=== PATIENT | male | born 1950 | race Caucasian/White ===

== ENCOUNTER → 2016-08-02 | Outpatient (REF) | payer MEDICARE ==
[~2016-08-02] MED LIST: ASPI1TAB PO; DOCQ100C; POLY33502; SENN8.6T10
[2016-08-02 11:40] LABS: BASO % 0.5 % (0.0-1.0); EOS # 0.1 K/mm3 (0.0-0.50); EOS % 1.2 % (0.0-3.0); LARGE UNSTAINED CELL # 0.1 K/mm3 (0.0-0.4); LARGE UNSTAINED CELL % 1.6 % (0.0-4.0); LYMPH # 1.8 K/mm3 (1.5-4.5); LYMPH % 26.4 % (24.0-44.0); MEAN CORPUSCULAR HEMOGLOBIN 31.7 pg (27.0-33.0); MEAN CORPUSCULAR HGB CONC 33.8 g/dl (32.0-36.5); MEAN CORPUSCULAR VOLUME 93.9 fl (80.0-96.0); MONO # 0.5 K/mm3 (0.0-0.8); MONO % 7.9 % (0.0-5.0); NEUTROPHILS # 3.9 K/mm3 (1.8-7.7); NEUTROPHILS % 62.4 % (36.0-66.0); PLATELET COUNT, AUTOMATED 189 k/mm3 (150-450); RED CELL DISTRIBUTION WIDTH 13.3 % (11.5-14.5); WHITE BLOOD COUNT 6.3 K/mm3 (4.0-10.0)
[2016-08-02 11:57] LABS: ALBUMIN 3.8 GM/DL (3.2-5.2); ALBUMIN/GLOBULIN RATIO 1.52 (1.00-1.93); ALKALINE PHOSPHATASE 65 U/L (45-117); ALT/SGPT 29 U/L (12-78); ANION GAP 8 MEQ/L (8-16); AST/SGOT 25 U/L (15-37); BLOOD UREA NITROGEN 12 MG/DL (7-18); CALCIUM LEVEL 9.2 MG/DL (8.8-10.2); CARBON DIOXIDE LEVEL 29 MEQ/L (21-32); CHLORIDE LEVEL 102 MEQ/L (98-107); CHOLESTEROL LEVEL 160 MG/DL (<200); CREATININE FOR GFR 1.02 MG/DL (0.70-1.30); GLOMERULAR FILTRATION RATE > 60.0 (>49); GLUCOSE, FASTING 82 MG/DL (80-110); POTASSIUM SERUM 3.8 MEQ/L (3.5-5.1); SODIUM LEVEL 139 MEQ/L (136-145); TOTAL PROTEIN 6.3 GM/DL (6.4-8.2); TRIGLYCERIDES LEVEL 80 MG/DL (<150)
== END ==
LOC: M SFHCPLAZ 08:46
PROVIDERS: ATTEND Nurse Practitioner Family
DX: K59.00 Constipation, unspecified (principal); Z13.1 Encounter for screening for diabetes mellitus; Z13.220 Encounter for screening for lipoid disorders; Z79.899 Other long term (current) drug therapy

== ENCOUNTER 2016-08-04 11:13 | Emergency (ER) | payer MEDICARE ==
[~2016-08-04] VITALS: Ht 170.2 cm; Wt 85.3 kg
[2016-08-04] MEDS ORDERED: POLY33502 (11:24)
[2016-08-04] MEDS ORDERED: SENN8.6T10 (11:24)
[2016-08-04] MEDS ORDERED: DOCQ100C (11:24)
[2016-08-04] MEDS ORDERED: ASPIRIN 81 MG CHEW TABLET PO ONE (11:30)
[2016-08-04] MEDS ORDERED: GI COCKTAIL 50ML BTL(HYOSCYAMINE/MAALOX/LIDOCAINE VISCOUS)(1:3:1) PO ONE (11:30)
[2016-08-04 11:43] LABS: BASO % 0.5 % (0.0-1.0); EOS # 0.1 K/mm3 (0.0-0.50); EOS % 1.3 % (0.0-3.0); LARGE UNSTAINED CELL # 0.1 K/mm3 (0.0-0.4); LARGE UNSTAINED CELL % 1.9 % (0.0-4.0); LYMPH # 1.4 K/mm3 (1.5-4.5); LYMPH % 26.6 % (24.0-44.0); MEAN CORPUSCULAR VOLUME 93.5 fl (80.0-96.0); MONO # 0.4 K/mm3 (0.0-0.8); MONO % 7.6 % (0.0-5.0); NEUTROPHILS # 3.3 K/mm3 (1.8-7.7); NEUTROPHILS % 62.3 % (36.0-66.0); PLATELET COUNT, AUTOMATED 181 k/mm3 (150-450); RED CELL DISTRIBUTION WIDTH 12.8 % (11.5-14.5); WHITE BLOOD COUNT 5.3 K/mm3 (4.0-10.0)
[2016-08-04] MEDS ORDERED: SUCRALFATE SUSP 1GM/10ML UD PO ONE (11:45)
[2016-08-04 11:57] LABS: MEAN CORPUSCULAR HEMOGLOBIN 32.4 pg (27.0-33.0); MEAN CORPUSCULAR HGB CONC 35.3 g/dl (32.0-36.5)
--- NOTE | 2016-08-04 11:57 | REP ---
Portable chest, single AP view, patient sitting upright: There are no comparisons. The lung mora are clear. The cardiac size is normal. The gregg, mediastinum, and bony thorax are unremarkable. Impression: Negative portable chest. Signed by Jaron Shi MD 08/04/2016 11:48 A
[2016-08-04] MEDS ORDERED: SUCRALFATE 1 GM TAB PO ONE (12:00)
[2016-08-04 12:10] LABS: ALBUMIN 3.7 GM/DL (3.2-5.2); ALBUMIN/GLOBULIN RATIO 1.28 (1.00-1.93); ALKALINE PHOSPHATASE 71 U/L (45-117); ALT/SGPT 30 U/L (12-78); ANION GAP 7 MEQ/L (8-16); AST/SGOT 25 U/L (15-37); BILIRUBIN,DIRECT 0.2 MG/DL (0.0-0.2); BILIRUBIN,TOTAL 0.9 MG/DL (0.2-1.0); BLOOD UREA NITROGEN 12 MG/DL (7-18); CALCIUM LEVEL 8.6 MG/DL (8.8-10.2); CARBON DIOXIDE LEVEL 29 MEQ/L (21-32); CHLORIDE LEVEL 102 MEQ/L (98-107); CREATININE FOR GFR 0.99 MG/DL (0.70-1.30); GLOMERULAR FILTRATION RATE > 60.0 (>49); GLUCOSE, FASTING 93 MG/DL (80-110); POTASSIUM SERUM 3.4 MEQ/L (3.5-5.1); SODIUM LEVEL 138 MEQ/L (136-145); TOTAL PROTEIN 6.6 GM/DL (6.4-8.2)
--- NOTE | 2016-08-04 12:32 | REP ---
Right lower extremity deep vein duplex ultrasound: The deep veins demonstrate normal compression, normal Doppler color flow and normal Doppler waveforms with respiration and augmentation from the popliteal vein to the common femoral vein. Impression: There is no deep vein thrombus. Signed by Jaron Shi MD 08/04/2016 12:24 P
[2016-08-04] MEDS ORDERED: ASPI1TAB PO (19:04)
[2016-08-04 19:18] VITALS: BP 136/84
--- NOTE | 2016-08-05 07:20 | ECGEPIP ---
Stationary ECG Study [facility] - ED Test Date: 2016-08-04 Pat Name: CRYSTAL KUMARI Department: Room: - Gender: M Director Public: rn : 1950 Requested By: Verna Stanley Order Number: [id number] Reading MD: Verna Stanley Measurements Intervals [place] Rate: 62 P: 4 [place]: 186 QRS: -1 QRSD: 87 T: -8 QT: 388 QTc: 395 Interpretive Statements SINUS RHYTHM LOW QRS VOLTAGE IN PRECORDIAL LEADS NSTTW ABNORMALITY NO PRIOR FOR COMPARISON Electronically Signed On 08-05-2016 7:19:29 EDT by Verna Stanley
--- NOTE | 2016-08-05 07:24 | ECGEPIP ---
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
[2016-08-13] MEDS ORDERED: TYLE325T5 PO (15:06)
[2016-08-13] MEDS ORDERED: UNIS25TA2 PO (15:06)
== END 2016-08-04 19:19 | disposition home or self-care (01) ==
LOC: M ED 11:49
DX: R07.9 Chest pain, unspecified (principal); Z79.82 Long term (current) use of aspirin

== ENCOUNTER → 2016-08-06 | Outpatient (CLI) | payer MEDICARE ==
[~2016-08-06] MED LIST changes: +GASTROGRAFIN SOLUTION 30ML (Q9963) As Ordered ONE; +ISOVUE-370 76% 100ML VIAL (Q9967) As Ordered ONE
--- NOTE | 2016-08-06 20:24 | REP ---
CT ABDOMEN AND PELVIS WITH AND WITHOUT CONTRAST: TECHNIQUE: Axial noncontrast images through the abdomen followed by contrast-enhanced images through the abdomen and pelvis using 100 mL Isovue 370 intravenous contrast material, with coronal and sagittal reformations. Visualized lung bases demonstrate minor linear fibrotic change. The liver demonstrates a 9 mm hypodense nodule on the right superiorly. A hypodense nodule is seen in the caudate lobe. These appear to possibly demonstrate some peripheral enhancement and may represent hemangiomas. The spleen is unremarkable. Adrenals, pancreas and right kidney are unremarkable. Multiple cystic areas are seen throughout the left renal pelvis and I suspect these represent multiple peripelvic cysts. There is no hydroureter. Moderate atherosclerotic calcifications are seen of the abdominal aorta without aneurysm. There is no adenopathy. There is no free air or free fluid. There is no appendicitis or bowel wall thickening. There is no pelvic mass. The urinary bladder appears grossly unremarkable. IMPRESSION: Two nodules in the liver demonstrate possible peripheral nodular enhancement and may represent hemangiomas. Recommend dedicated dynamic CT or MRI of the liver to further evaluate. Multiple cystic structures throughout the left renal pelvis probably represent peripelvic cysts, although UPJ obstruction is not excluded. No adenopathy. No free fluid. No bowel wall abnormality. Signed by Jaron Matos MD 08/07/2016 05:22 P
== END ==
LOC: M RAD 16:22
PROVIDERS: ATTEND Nurse Practitioner Family
DX: K59.00 Constipation, unspecified (principal); K76.89 Other specified diseases of liver; N39.8 Other specified disorders of urinary system
CPT/HCPCS: 74178; Q9963; Q9967

== ENCOUNTER 2016-08-07 02:49 | Emergency (ER) | payer MEDICARE ==
[~2016-08-07] VITALS: Ht 170.2 cm; Wt 85.3 kg
[~2016-08-07 02:49] MED LIST changes: -GASTROGRAFIN SOLUTION 30ML (Q9963) As Ordered ONE; -ISOVUE-370 76% 100ML VIAL (Q9967) As Ordered ONE
[2016-08-07 05:26] VITALS: BP 130/75
[2016-08-13] MEDS ORDERED: UNIS25TA2 PO (15:06)
[2016-08-13] MEDS ORDERED: TYLE325T5 PO (15:06)
== END 2016-08-07 05:38 | disposition home or self-care (01) ==
LOC: M ED 03:50
DX: R19.7 Diarrhea, unspecified (principal); K59.00 Constipation, unspecified; Z79.82 Long term (current) use of aspirin

== ENCOUNTER 2016-08-07 08:33 | Emergency (ER) | payer MEDICARE ==
[~2016-08-07] VITALS: Ht 170.2 cm; Wt 86.2 kg
[2016-08-07 09:27] LABS: BASO % 0.3 % (0.0-1.0); EOS # 0.1 K/mm3 (0.0-0.50); LARGE UNSTAINED CELL # 0.1 K/mm3 (0.0-0.4); LARGE UNSTAINED CELL % 1.8 % (0.0-4.0); LYMPH # 1.2 K/mm3 (1.5-4.5); LYMPH % 19.1 % (24.0-44.0); MONO # 0.5 K/mm3 (0.0-0.8); MONO % 7.3 % (0.0-5.0); NEUTROPHILS # 4.4 K/mm3 (1.8-7.7); NEUTROPHILS % 70.5 % (36.0-66.0)
[2016-08-07] MEDS ORDERED: ASPIRIN 81 MG CHEW TABLET PO ONE (09:30)
--- NOTE | 2016-08-07 09:32 | ECGEPIP ---
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
--- NOTE | 2016-08-07 09:42 | REP ---
Chest one-view HISTORY: Chest pain Comparison: 08/04/2016 The lungs are clear. The heart is normal in size. The pulmonary vasculature is normal in appearance. Impression: No acute disease. Signed by Aristides Morrison MD 08/07/2016 09:32 A
[2016-08-07 09:44] LABS: ALBUMIN 3.7 GM/DL (3.2-5.2); ALBUMIN/GLOBULIN RATIO 1.19 (1.00-1.93); ALKALINE PHOSPHATASE 76 U/L (45-117); ALT/SGPT 31 U/L (12-78); ANION GAP 8 MEQ/L (8-16); AST/SGOT 29 U/L (15-37); BILIRUBIN,DIRECT 0.2 MG/DL (0.0-0.2); BILIRUBIN,TOTAL 0.8 MG/DL (0.2-1.0); BLOOD UREA NITROGEN 12 MG/DL (7-18); CALCIUM LEVEL 8.6 MG/DL (8.8-10.2); CARBON DIOXIDE LEVEL 27 MEQ/L (21-32); CHLORIDE LEVEL 104 MEQ/L (98-107); CREATININE FOR GFR 0.96 MG/DL (0.70-1.30); GLOMERULAR FILTRATION RATE > 60.0 (>49); GLUCOSE, FASTING 82 MG/DL (80-110); POTASSIUM SERUM 3.5 MEQ/L (3.5-5.1); SODIUM LEVEL 139 MEQ/L (136-145); TOTAL PROTEIN 6.8 GM/DL (6.4-8.2)
[2016-08-07 09:58] LABS: MEAN CORPUSCULAR HEMOGLOBIN 32.4 pg (27.0-33.0); MEAN CORPUSCULAR HGB CONC 35.3 g/dl (32.0-36.5); MEAN CORPUSCULAR VOLUME 91.8 fl (80.0-96.0); RED CELL DISTRIBUTION WIDTH 12.9 % (11.5-14.5); WHITE BLOOD COUNT 6.6 K/mm3 (4.0-10.0)
[2016-08-07 09:59] LABS: PLATELET COUNT, AUTOMATED 195 k/mm3 (150-450)
[2016-08-07] MEDS ORDERED: ISOVUE-370 76% 100ML VIAL (Q9967) As Ordered ONE (10:57)
[2016-08-07 12:23] VITALS: BP 145/83
--- NOTE | 2016-08-07 12:29 | REP ---
CT ANGIOGRAM OF THE CHEST: TECHNIQUE: Axial contrast enhanced images from the thoracic inlet to the upper abdomen using 100 mL Isovue 370 intravenous contrast material with multiplanar reformations. No infiltrate is seen in either lung. There is no CT evidence of pulmonary embolism. There is no evidence of thoracic aortic aneurysm or dissection. There is no pleural or pericardial effusion. There is no adenopathy in the chest. In the visualized portions of the upper abdomen, two indeterminate liver nodules are again seen, as were visualized on the prior CT of the abdomen 08/06/2016. Contrast seen within a dilated left renal collecting system which has an appearance most consistent with left UPJ stricture and obstruction. IMPRESSION: No CT evidence of pulmonary embolism. Two indeterminate nodules of the liver. Again dynamic CT or MRI of the liver is recommended with contrast is recommended. Signed by Jaron Matos MD 08/07/2016 05:25 P
--- NOTE | 2016-08-07 18:06 | ECGEPIP ---
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
[2016-08-13] MEDS ORDERED: TYLE325T5 PO (15:06)
[2016-08-13] MEDS ORDERED: UNIS25TA2 PO (15:06)
== END 2016-08-07 14:33 | disposition home or self-care (01) ==
LOC: M ED 10:27
DX: R10.13 Epigastric pain (principal); R06.02 Shortness of breath; R53.1 Weakness
CPT/HCPCS: 71010; 71275; 80048; 80076; 82550; 82553; 83690; 83880; 84484; 85025; 93005; 93041; 94760; 99285; Q9967

== ENCOUNTER 2016-08-09 04:32 | Emergency (ER) | payer MEDICARE ==
[~2016-08-09] VITALS: Ht 170.2 cm; Wt 86.2 kg
--- NOTE | 2016-08-09 08:46 | REP ---
CT abdomen pelvis without IV or bowel contrast: Comparisons 08/06/2016 performed without and with IV contrast and with bowel contrast. The visualized lung mora are unremarkable. The hypo densities noted in the liver previously were identified on the images with IV contrast. There are not readily apparent on today's study without IV contrast. Images from the prior study for further information. The gallbladder, pancreas and spleen are unremarkable. There is vicarious excretion of intravenous contrast into the gallbladder from the prior study. The adrenals are unremarkable. The right kidney is unremarkable. There is left hydronephrosis. The proximal left ureter is markedly dilated. This is unchanged from the comparison study and compatible with chronic stricture at the UPJ. There is no calculus. There are no calculi on the right or left ureters or in the bladder. No significant perinephric stranding on the right on the left. The abdominal aorta is unremarkable. The bowel and mesentery are unremarkable. Pelvis: The appendix is normal. The bladder is unremarkable. There is no adenopathy or ascites. There is sigmoid colon and descending colon diverticulosis without diverticulitis. 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 A CT urogram might be considered for followup. The hypo densities in the liver were noted on the comparison study. Please refer to that report for further information. Signed by Jaron Shi MD 08/09/2016 08:37 A
[2016-08-09 09:23] VITALS: BP 161/103
[2016-08-13] MEDS ORDERED: TYLE325T5 PO (15:06)
[2016-08-13] MEDS ORDERED: UNIS25TA2 PO (15:06)
== END 2016-08-09 09:25 | disposition home or self-care (01) ==
LOC: M ED 05:34
DX: N13.0 Hydronephrosis with ureteropelvic junction obstruction (principal); D18.00 Hemangioma unspecified site

== ENCOUNTER 2016-08-15 20:51 | Emergency (ER) | payer MEDICARE ==
[~2016-08-15] VITALS: Ht 170.2 cm; Wt 83.0 kg
[~2016-08-15 20:51] MED LIST changes: +TYLE325T5 PO; +UNIS25TA2 PO
[2016-08-15 20:52] VITALS: BP 141/72
[2016-08-15] MEDS ORDERED: HYDR25OIN TOP (21:42)
[2016-08-15] MEDS ORDERED: MAGNESIUM CITRATE 300 ML BTL PO ONE (21:45)
--- NOTE | 2016-08-16 08:37 | REP ---
KUB, ONE VIEW: HISTORY: Constipation. A small amount of air is present in small and large intestines. There are no air fluid levels or dilated loops of intestine. There is no pneumoperitoneum. IMPRESSION: Nonspecific bowel gas pattern. Signed by Aristides Morrison MD 08/16/2016 08:51 A
== END 2016-08-15 21:53 | disposition home or self-care (01) ==
LOC: M ED 21:23
DX: K59.00 Constipation, unspecified (principal); K64.8 Other hemorrhoids; F33.9 Major depressive disorder, recurrent, unspecified; Z79.899 Other long term (current) drug therapy

== ENCOUNTER 2016-08-16 21:21 | Emergency (ER) | payer BC, MEDICARE ==
[~2016-08-16] VITALS: Ht 170.2 cm; Wt 82.1 kg
[~2016-08-16 21:21] MED LIST changes: -GABA-283 PO; -GAVISOL3; -TIZA2CAP3 PO
[2016-08-16] MEDS ORDERED: KETOROLAC 60 MG/2 ML VIAL (J1885) IM ONE (21:45)
[2016-08-16 22:30] VITALS: BP 149/84
== END 2016-08-16 22:32 | disposition home or self-care (01) ==
LOC: EDBD 21:21 → M ED 21:40
DX: G89.29 Other chronic pain (principal); M54.5 Low back pain; N13.1 Hydronephrosis with ureteral stricture, not elsewhere classified
CPT/HCPCS: 81001; 87086; 96372; 99282; J1885

== ENCOUNTER → 2016-08-16 | Outpatient (REF) | payer MEDICARE ==
[~2016-08-16] MED LIST changes: +GABA-283 PO; +GAVISOL3; +HYDR25OIN TOP; +TIZA2CAP3 PO
== END ==
LOC: M LAB REF 12:49
PROVIDERS: ATTEND Nurse Practitioner Family
DX: N13.1 Hydronephrosis with ureteral stricture, not elsewhere classified (principal)

== ENCOUNTER 2016-08-19 23:49 | Emergency (ER) | payer MEDICARE ==
[~2016-08-19] VITALS: Ht 170.2 cm; Wt 83.0 kg
[2016-08-20] MEDS ORDERED: GAVISOL3 (00:10)
[2016-08-20] MEDS ORDERED: TIZA2CAP3 PO (00:11)
[2016-08-20] MEDS ORDERED: GABA-283 PO (00:11)
[2016-08-20] MEDS ORDERED: KETOROLAC 60 MG/2 ML VIAL (J1885) IM ONE (00:30)
[2016-08-20 01:37] VITALS: BP 149/80
== END 2016-08-20 01:41 | disposition home or self-care (01) ==
LOC: M ED 08-20 00:41
DX: K92.1 Melena (principal); M54.5 Low back pain; G89.29 Other chronic pain; K59.09 Other constipation; F33.9 Major depressive disorder, recurrent, unspecified; Z79.82 Long term (current) use of aspirin; Z79.899 Other long term (current) drug therapy; D12.5 Benign neoplasm of sigmoid colon; K64.8 Other hemorrhoids; K57.30 Diverticulosis of large intestine without perforation or abscess without bleeding; R12 Heartburn; R13.10 Dysphagia, unspecified; K29.70 Gastritis, unspecified, without bleeding; K29.80 Duodenitis without bleeding; K20.9 Esophagitis, unspecified; R07.9 Chest pain, unspecified; K74.60 Unspecified cirrhosis of liver; R06.02 Shortness of breath; M54.6 Pain in thoracic spine; N18.9 Chronic kidney disease, unspecified; N13.30 Unspecified hydronephrosis
CPT/HCPCS: 43239; 45385; 88305; 96372; 99282; J1885

== ENCOUNTER → 2016-08-20 | Outpatient (CLI) | payer MEDICARE ==
[~2016-08-20] VITALS: Ht 170.2 cm; Wt 83.0 kg
[~2016-08-20] MED LIST changes: +GABA-283 PO; +GAVISOL3; +LIDOCAINE 2% INJ 100 MG/5 ML SDV (FOR ANES.) As Ordered ONE; +NS 1,000 ML IV ONE; +PROPOFOL 200 MG/20 ML VIAL As Ordered ONE; +TIZA2CAP3 PO
--- NOTE | 2016-08-20 11:29 | ROOR ---
Patient Name: Romulo Davis Procedure Date: 08/20/2016 11:12 AM Date of : 1950 Age: 66 Room: [facility] Gender: Male Note Status: Finalized Procedure: Upper GI endoscopy Indications: Dysphagia, Heartburn Providers: Abel SCRUGGS MD Referring MD: Alicia Oneill NP Requesting Provider: Medicines: Monitored Anesthesia Care Complications: No immediate complications. Procedure: Pre-Anesthesia Assessment: - The heart rate, respiratory rate, oxygen saturations, blood pressure, adequacy of pulmonary ventilation, and response to care were monitored throughout the procedure. The Endoscope was introduced through the mouth, and advanced to the second part of duodenum. The upper GI endoscopy was accomplished without difficulty. The patient tolerated the procedure well. Findings: Mildly severe esophagitis was found at the gastroesophageal junction. Biopsies were taken with a cold forceps for histology. Mild inflammation characterized by linear erosions was found in the gastric antrum. Biopsies were taken with a cold forceps for histology. Mild inflammation was found in the duodenal bulb. The exam was otherwise without abnormality. Impression: - Mild esophagitis. Biopsied. - Mild Gastritis. Biopsied. - Mild Duodenitis. - The examination was otherwise normal. Recommendation: - Use Prilosec (omeprazole) 40 mg PO daily. - (the script was sent to your pharmacy on file) Abel Scruggs MD Abel SCRUGGS MD 08/20/2016 11:28:39 AM This report has been signed electronically. Number of Addenda: 0 Note Initiated On: 08/20/2016 11:12 AM Estimated Blood Loss: Estimated blood loss: none.
--- NOTE | 2016-08-20 11:45 | ROOR ---
Patient Name: Romulo Davis Procedure Date: 08/20/2016 11:14 AM Date of : 1950 Age: 66 Room: [facility] Gender: Male Note Status: Finalized Procedure: Colonoscopy Indications: Hematochezia, Change in stool caliber, Constipation Providers: Abel SCRUGGS MD Referring MD: Alicia Oneill NP Requesting Provider: Medicines: Monitored Anesthesia Care Complications: No immediate complications. Procedure: Pre-Anesthesia Assessment: - The heart rate, respiratory rate, oxygen saturations, blood pressure, adequacy of pulmonary ventilation, and response to care were monitored throughout the procedure. The Colonoscope was introduced through the anus and advanced to the terminal ileum, with identification of the appendiceal orifice and IC valve. The colonoscopy was performed without difficulty. The patient tolerated the procedure well. The quality of the bowel preparation was good. Findings: The perianal and digital rectal examinations were normal. Four sessile polyps were found in the sigmoid colon. The polyps were 4 to 6 mm in size. These polyps were removed with a cold snare. Resection and retrieval were complete. Internal hemorrhoids were found during retroflexion. The hemorrhoids were large. A few small-mouthed diverticula were found in the sigmoid colon. The exam was otherwise without abnormality on direct and retroflexion views. Impression: - Four 4 to 6 mm polyps in the sigmoid colon, removed with a cold snare. Resected and retrieved. - Moderate to large Internal hemorrhoids. - Mild diverticulosis in the sigmoid colon. - The examination was otherwise normal on direct and retroflexion views. Recommendation: - Use fiber, for example Citrucel, Fibercon, Konsyl or Metamucil. - Miralax 1 capful (17 grams) in 8 ounces of water PO daily. - Repeat colonoscopy in 3 years for surveillance of multiple adenomas. Abel Scruggs MD Abel SCRUGGS MD 08/20/2016 11:45:14 AM This report has been signed electronically. Number of Addenda: 0 Note Initiated On: 08/20/2016 11:14 AM Estimated Blood Loss: Estimated blood loss: none.
[2016-08-20 12:16] VITALS: BP 103/56
== END | disposition home or self-care (01) ==
LOC: M OPP 10:07
PROVIDERS: ATTEND Internal Medicine Gastroenterology
DX: K92.1 Melena (principal); R19.5 Other fecal abnormalities; K59.00 Constipation, unspecified; D12.5 Benign neoplasm of sigmoid colon; K64.8 Other hemorrhoids; K57.30 Diverticulosis of large intestine without perforation or abscess without bleeding; R12 Heartburn; R13.10 Dysphagia, unspecified; K29.70 Gastritis, unspecified, without bleeding; K29.80 Duodenitis without bleeding; K20.9 Esophagitis, unspecified; R07.9 Chest pain, unspecified; K74.60 Unspecified cirrhosis of liver; R06.02 Shortness of breath; M54.6 Pain in thoracic spine; N18.9 Chronic kidney disease, unspecified; N13.30 Unspecified hydronephrosis; Z79.82 Long term (current) use of aspirin; Z79.899 Other long term (current) drug therapy

== ENCOUNTER → 2016-08-24 | Outpatient (CLI) | payer MEDICARE ==
[~2016-08-24] MED LIST changes: -LIDOCAINE 2% INJ 100 MG/5 ML SDV (FOR ANES.) As Ordered ONE; -NS 1,000 ML IV ONE; -PROPOFOL 200 MG/20 ML VIAL As Ordered ONE
[2016-08-24 13:32] LABS: ANION GAP 8 MEQ/L (8-16); BLOOD UREA NITROGEN 5 MG/DL (7-18); CALCIUM LEVEL 8.7 MG/DL (8.8-10.2); CARBON DIOXIDE LEVEL 30 MEQ/L (21-32); CHLORIDE LEVEL 105 MEQ/L (98-107); CREATININE FOR GFR 0.95 MG/DL (0.70-1.30); GLOMERULAR FILTRATION RATE > 60.0 (>49); GLUCOSE, FASTING 122 MG/DL (80-110); SODIUM LEVEL 143 MEQ/L (136-145)
== END ==
LOC: M SMT 10:31
PROVIDERS: ATTEND Nurse Practitioner Family
DX: N13.1 Hydronephrosis with ureteral stricture, not elsewhere classified (principal)

== ENCOUNTER 2016-08-28 18:48 | Emergency (ER) | payer BC, MEDICARE ==
[~2016-08-28] VITALS: Ht 170.2 cm; Wt 84.4 kg
[2016-08-28] MEDS ORDERED: KETOROLAC 60 MG/2 ML VIAL (J1885) IM ONE (19:45)
[2016-08-28 20:28] VITALS: BP 168/82
== END 2016-08-28 20:30 | disposition home or self-care (01) ==
LOC: M ED 19:48
DX: G89.29 Other chronic pain (principal); M54.6 Pain in thoracic spine; K59.00 Constipation, unspecified; K64.9 Unspecified hemorrhoids; Z79.899 Other long term (current) drug therapy
CPT/HCPCS: 96372; 99282; J1885

== ENCOUNTER → 2016-08-29 | Outpatient (CLI) | payer BC ==
[~2016-08-29] MED LIST changes: +ISOVUE-370 76% 100ML VIAL (Q9967) As Ordered ONE
--- NOTE | 2016-08-29 08:57 | REP ---
Clinical: Hydronephrosis. Comparison: 08/09/2016. Technique: Axial precontrast, contrast enhanced, and delayed images of the abdomen and pelvis using 100 ml Isovue 370 intravenous contrast material with coronal and sagittal re-formations. Findings: The previously suggested grade 4 hydronephrosis due to suspected ureteropelvic junction (UPJ) obstruction actually represents large central parapelvic cysts involving the left kidney measuring up to 6 cm with an otherwise normal collecting system. Bilateral mild chronic perinephric stranding is appreciated. The kidneys demonstrate relatively normal enhancement patterns. There is no evidence for nephroureterolithiasis or renal mass lesions and the right kidney is without cystic changes. Delayed images demonstrate normal bilateral ureters and bladder. 1.1 cm hepatic hypodensity likely represents small cyst along with 2.2 cm hemangioma in the caudate lobe. Spleen, pancreas, gallbladder, and bilateral adrenal glands are normal. The enteric system is without obstruction or acute inflammatory process. Sigmoid diverticulosis noted without acute diverticulitis. Pelvis demonstrates normal bladder and age appropriate prostate/seminal vesicles. Small amount of free fluid is identified in the pelvis which is nonspecific and of uncertain etiology. Atherosclerotic changes to the vasculature noted without aortic aneurysm or dissection. Skeletal structures demonstrate degenerative changes without focal osseous abnormality. Lung bases are clear. Impression: 1. Marked large left parapelvic cysts fill the collecting system and renal pelvis with cysts measuring up to 6 cm mimicking UPJ obstruction, but with otherwise normal appearance to the collecting system. Right kidney/ureter as well as the bladder appear normal. 2. Hepatic cyst and hemangioma as described above. 3. Diverticulosis without obvious acute diverticulitis. 4. Small amount of free fluid in the pelvis is nonspecific. 5. Further chronic changes as described above. Signed by Rajinder Zacarias MD 08/29/2016 08:49 A
== END ==
LOC: M RAD 08:07
PROVIDERS: ATTEND Nurse Practitioner Family
DX: N13.1 Hydronephrosis with ureteral stricture, not elsewhere classified (principal)
CPT/HCPCS: 72052; 72070; 74178; Q9967

== ENCOUNTER → 2016-08-29 | Outpatient (CLI) | payer MEDICARE ==
[~2016-08-29] MED LIST changes: -ISOVUE-370 76% 100ML VIAL (Q9967) As Ordered ONE
--- NOTE | 2016-08-29 15:33 | REP ---
Clinical: Thoracic pain. Technique: AP, lateral, swimmers views of the thoracic spine. Findings: Alignment and kyphosis maintained. Vertebral bodies are intact and there is no evidence for acute fracture / compression injury or subluxation. Bridging osteophytes at T7-8, T8-9, T9-10 suggest moderate degenerative change. Impression: Normal alignment and kyphosis without acute fracture / compression injury or subluxation. Moderate degenerative changes with bridging osteophytes noted. Signed by Rajinder Zacarias MD 08/29/2016 03:24 P
--- NOTE | 2016-08-29 15:35 | REP ---
Clinical: Cervical pain. Technique: AP, lateral, flexion/extension, open-mouth, bilateral oblique views. Findings: Alignment and lordosis maintained. No acute fracture / compression injury or subluxation. Moderate to early advanced degenerative disc osteophyte complex noted at the C4-5, C5-6, C6-7 levels. Spinous processes are intact and normal. Open mouth view demonstrates normal C1-C2 articulation and odontoid process. Oblique views cannot exclude associated neural foraminal narrowing at the above-mentioned degenerative levels. Impression: Moderate to early advanced degenerative changes at C4-5 through C6-7. Alignment and lordosis maintained. No acute fracture / compression injury or subluxation. Signed by Rajinder Zacarias MD 08/29/2016 03:27 P
== END ==
LOC: M RAD 14:59
PROVIDERS: ATTEND Nurse Practitioner Family
DX: M25.78 Osteophyte, vertebrae (principal); M54.6 Pain in thoracic spine; N13.1 Hydronephrosis with ureteral stricture, not elsewhere classified

== ENCOUNTER → 2016-09-06 | Outpatient (CLI) | payer MEDICARE | LOC: M SMT 11:29 | PROVIDERS: ATTEND Nurse Practitioner Family | DX: Z12.5 Encounter for screening for malignant neoplasm of prostate (principal) | CPT/HCPCS: 36415; G0103 ==

== ENCOUNTER 2016-09-14 02:43 | Emergency (ER) | payer MEDICARE ==
[~2016-09-14] VITALS: Ht 170.2 cm; Wt 84.4 kg
[2016-09-14] MEDS ORDERED: LIDOCAINE VISCOUS 2% SOLN 15ML UDC SS ONE (04:15)
[2016-09-14 06:49] LABS: BASO % 0.4 % (0.0-1.0); EOS # 0.3 K/mm3 (0.0-0.50); EOS % 3.2 % (0.0-3.0); LARGE UNSTAINED CELL # 0.1 K/mm3 (0.0-0.4); LARGE UNSTAINED CELL % 1.2 % (0.0-4.0); LYMPH # 1.3 K/mm3 (1.5-4.5); LYMPH % 14.4 % (24.0-44.0); MEAN CORPUSCULAR HEMOGLOBIN 33.2 pg (27.0-33.0); MEAN CORPUSCULAR HGB CONC 34.4 g/dl (32.0-36.5); MEAN CORPUSCULAR VOLUME 96.4 fl (80.0-96.0); MONO # 0.6 K/mm3 (0.0-0.8); MONO % 6.9 % (0.0-5.0); NEUTROPHILS # 6.2 K/mm3 (1.8-7.7); NEUTROPHILS % 73.9 % (36.0-66.0); PLATELET COUNT, AUTOMATED 184 k/mm3 (150-450); RED CELL DISTRIBUTION WIDTH 13.3 % (11.5-14.5); WHITE BLOOD COUNT 8.4 K/mm3 (4.0-10.0)
[2016-09-14 06:57] LABS: ANION GAP 6 MEQ/L (8-16); BLOOD UREA NITROGEN 9 MG/DL (7-18); CALCIUM LEVEL 8.3 MG/DL (8.8-10.2); CARBON DIOXIDE LEVEL 29 MEQ/L (21-32); CHLORIDE LEVEL 104 MEQ/L (98-107); CREATININE FOR GFR 0.82 MG/DL (0.70-1.30); GLOMERULAR FILTRATION RATE > 60.0 (>49); GLUCOSE, FASTING 98 MG/DL (80-110); POTASSIUM SERUM 4.2 MEQ/L (3.5-5.1); SODIUM LEVEL 139 MEQ/L (136-145)
[2016-09-14] MEDS ORDERED: ISOVUE-370 76% 100ML VIAL (Q9967) As Ordered ONE (07:13)
--- NOTE | 2016-09-14 09:45 | REP ---
CT NECK WITH CONTRAST: HISTORY: Foreign body sensation. CONTRAST: Isovue 370, 75 mL. The examination is very limited secondary to motion. Calcifications are present in the right tonsil. This is secondary to previous inflammatory disease. There is soft tissue fullness of the left posterolateral aspect of the hypopharynx. There is minimal mass effect on the hypopharynx. There is no definite mass in the naso- or oropharynx. The larynx and subglottic trachea are normal in appearance. The salivary and thyroid glands are normal. Small lymph nodes less than 1 cm in size are present in the internal jugular chains, posterior triangles, and submandibular areas. Atherosclerotic calcification is present at the carotid bifurcations. Degenerative change is present in the cervical spine. The lung apices are clear. The visualized sinuses are clear. IMPRESSION: Very limited examination demonstrating soft tissue fullness of the left posterolateral aspect of the hypopharynx. This is suspicious for a neoplasm. There is minimal mass effect on the hypopharynx. Signed by Aristides Morrison MD 09/14/2016 09:56 A
[2016-09-14 10:08] VITALS: BP 134/85
== END 2016-09-14 10:11 | disposition home or self-care (01) ==
LOC: M ED 03:27
DX: R13.10 Dysphagia, unspecified (principal); Z79.899 Other long term (current) drug therapy
CPT/HCPCS: 36415; 70491; 80048; 85025; 99283; Q9967

== ENCOUNTER → 2016-11-13 | Outpatient (CLI) | payer MEDICARE ==
[~2016-11-13] MED LIST changes: +ASPI1TAB15 PO; +CIPR500S PO; +CITRPOW2 PO; +COLA100C5 PO; +GABA-279 PO; +META58.612 PO; +OMEP40CA2 PO; -POLY33502; +POLY33502 PO; +SENN1TAB10 PO; -SENN8.6T10
[2016-11-13 09:21] LABS: INR 1.59
[2016-11-13 09:37] LABS: MEAN CORPUSCULAR HEMOGLOBIN 32.5 pg (27.0-33.0); MEAN CORPUSCULAR HGB CONC 34.7 g/dl (32.0-36.5); MEAN CORPUSCULAR VOLUME 93.8 fl (80.0-96.0); RED CELL DISTRIBUTION WIDTH 12.3 % (11.5-14.5); WHITE BLOOD COUNT 4.9 K/mm3 (4.0-10.0)
[2016-11-13 09:39] LABS: ANION GAP 6 MEQ/L (8-16); BLOOD UREA NITROGEN 10 MG/DL (7-18); CALCIUM LEVEL 9.2 MG/DL (8.8-10.2); CARBON DIOXIDE LEVEL 31 MEQ/L (21-32); CHLORIDE LEVEL 106 MEQ/L (98-107); CREATININE FOR GFR 0.98 MG/DL (0.70-1.30); GLOMERULAR FILTRATION RATE > 60.0 (>49); GLUCOSE, FASTING 93 MG/DL (80-110); POTASSIUM SERUM 4.2 MEQ/L (3.5-5.1); SODIUM LEVEL 143 MEQ/L (136-145)
--- NOTE | 2016-11-13 09:45 | REP ---
Chest two views HISTORY: Preop Comparison: 08/07/2016 Linear density is present in the left lower lobe consistent with scar. The right lung is clear. The heart is normal in size. The pulmonary vasculature is normal in appearance. Degenerative change is present in the thoracic spine. IMPRESSION: Left lower lobe scar. Signed by Aristides Morrison MD 11/13/2016 09:37 A
== END ==
LOC: M LAB 08:39
PROVIDERS: ATTEND Urology
DX: Z01.818 Encounter for other preprocedural examination (principal); N40.1 Benign prostatic hyperplasia with lower urinary tract symptoms; Z79.82 Long term (current) use of aspirin; Z79.899 Other long term (current) drug therapy

== ENCOUNTER → 2016-11-21 | Outpatient (REF) | payer MEDICARE | LOC: M LAB REF 10:47 | PROVIDERS: ATTEND Urology | DX: Z01.818 Encounter for other preprocedural examination (principal); N39.0 Urinary tract infection, site not specified ==

== ENCOUNTER → 2016-11-27 | Outpatient (CLI) | payer MEDICARE ==
[2016-11-27 11:02] LABS: INR 0.98
== END ==
LOC: M SMT 08:45
PROVIDERS: ATTEND Urology
DX: Z01.818 Encounter for other preprocedural examination (principal); N40.1 Benign prostatic hyperplasia with lower urinary tract symptoms; R79.1 Abnormal coagulation profile

== ENCOUNTER 2016-11-28 05:50 | Day surgery (SDC) | payer MEDICARE ==
[~2016-11-28] VITALS: Ht 172.7 cm; Wt 82.1 kg
[~2016-11-28 05:50] MED LIST changes: -ASPI1TAB15 PO; -CIPR500S PO; -COLA100C5 PO; -OMEP40CA2 PO
[2016-11-28] MEDS ORDERED: LR 1,000 ML IV SCH ×2 (06:00→09:30)
[2016-11-28] MEDS ORDERED: OMEP40CA2 PO (06:35)
[2016-11-28] MEDS ORDERED: ASPI1TAB15 PO (06:35)
[2016-11-28] MEDS ORDERED: LIDOCAINE 2% INJ 100 MG/5 ML SDV (FOR ANES.) As Ordered ONE (07:09)
[2016-11-28] MEDS ORDERED: MIDAZOLAM INJ 2 MG/2 ML VIAL (J2250) As Ordered ONE (07:09)
[2016-11-28] MEDS ORDERED: ROCURONIUM BROMIDE 50 MG/5 ML VIAL/SYRINGE As Ordered ONE (07:09)
[2016-11-28] MEDS ORDERED: PROPOFOL 200 MG/20 ML VIAL As Ordered ONE (07:09)
[2016-11-28] MEDS ORDERED: fentaNYL 100 MCG/2 ML INJECTION (J3010) As Ordered ONE (07:10)
[2016-11-28] MEDS ORDERED: ONDANSETRON 4MG/2ML VIAL (J2405) IV PRN ×2 (07:45→09:30)
[2016-11-28] MEDS ORDERED: ACETAMINOPHEN TAB 650MG DOSE (2X325MG) PO PRN (07:45)
[2016-11-28] MEDS ORDERED: ONDANSETRON 4MG/2ML VIAL (J2405) As Ordered ONE (08:10)
[2016-11-28] MEDS: GABAPENTIN 400 MG CAP PO SCH ×3 (09:00→20:36)
[2016-11-28] MEDS ORDERED: fentaNYL 100 MCG/2 ML INJECTION (J3010) IV PRN (09:30)
[2016-11-28] MEDS ORDERED: PERCOCET 5MG/325MG TAB PO PRN (09:30)
[2016-11-28] MEDS ORDERED: GLYCOPYRROLATE INJ 0.2 MG/ML 2 ML VIAL As Ordered ONE (09:59)
[2016-11-28] MEDS ORDERED: NEOSTIGMINE 1MG/ML 5 ML SYRINGE (J2710) As Ordered ONE (09:59)
[2016-11-28] MEDS ORDERED: FUROSEMIDE 100 MG/10 ML VIAL (J1940) As Ordered ONE (09:59)
[2016-11-28] MEDS: ASPIRIN 81 MG ENTERIC TAB PO SCH (12:54)
[2016-11-28] MEDS: DOCUSATE SODIUM 100 MG CAP PO SCH ×2 (12:55→20:36)
[2016-11-28] MEDS: OMEPRAZOLE 20 MG CAP PO SCH (12:55)
[2016-11-28 22:00] VITALS: BP 109/69
[2016-11-29 06:00] VITALS: BP 113/74
[2016-11-29] MEDS ORDERED: CIPROFLOXACIN 500 MG TAB PO SCH (06:00)
--- NOTE | 2016-11-29 07:30 | IPNPDOC ---
Assessment/Plan Date Seen The patient was seen on 11/29/16. Patient Summary This is a 66 y/o M POD1 s/p button TURP. He is doing well. Catheter is draining well and urine is clearing up. Plan/VTE VTE Prophylaxis Ordered?: Yes VTE Exclusion Mechanical Proph: N/A:VTE Prophy Ordered Plan/Urinary Catheter Urinary Catheter: Other Catheter: (catheter to stay in given recent prostate surgery) Plan - continue home meds - plan discharge home today w/ catheter in place Subjective Review oF Systems Chief Complaint The patient is a 66-year-old male admitted with a reason for visit of Benign Prostatic Hyperplasia. Events since Last Encounter No acute events o/n. Denies abdominal pain. No chest pain or SOB. No f/c/ns. Objective Physical Examination General Exam: Alert, Cooperative, No Acute Distress ABDOMEN EXAM: Soft Skin Exam: Nl turgor and temperature Neuro Exam: Normal Speech Psych Exam: Mental status NL, Mood NL Other physical findings catheter in place, draining pink urine Vital Signs/I&O Vital Signs Date Time Temp Pulse Resp B/P (MAP) Pulse Ox O2 Delivery O2 Flow Rate FiO2 11/28/16 22:00 98.4 60 18 109/69 (82) 99 Room Air I&O- Last 24 Hours up to 6 AM 11/29/16 06:00 Intake Total 540 ml Output Total 3000 ml Balance -2460 ml GABBY THOMPSON MD Nov 29, 2016 07:30
[2016-11-29] MEDS: OMEPRAZOLE 20 MG CAP PO SCH (09:31)
[2016-11-29] MEDS: DOCUSATE SODIUM 100 MG CAP PO SCH (09:31)
[2016-11-29] MEDS: GABAPENTIN 400 MG CAP PO SCH (09:31)
[2016-11-29] MEDS: ASPIRIN 81 MG ENTERIC TAB PO SCH (09:31)
[2016-11-29] MEDS ORDERED: CIPR500S PO (10:21)
[2016-11-29] MEDS ORDERED: COLA100C5 PO (10:21)
--- NOTE | 2016-11-30 13:44 | RO ---
DATE OF PROCEDURE: 11/28/2016 PREPROCEDURE DIAGNOSIS: Benign prostatic hyperplasia with urinary retention. POSTPROCEDURE DIAGNOSIS: Benign prostatic hyperplasia with urinary retention. PROCEDURE: Cystoscopy, button transurethral electrovaporization of the prostate. SURGEON: Dr. Tyrone Vasquez SHADER AND TONER: None. ANESTHESIA: General. OPERATIVE INDICATIONS: This is a 66-year-old male with benign prostatic hyperplasia and urinary retention refractory to medical therapy. He was brought to the operating room today for the above listed procedure. DESCRIPTION OF PROCEDURE: The patient was brought to the operating room where general anesthesia was induced. Prophylactic antibiotics were infused. He was then placed in dorsal lithotomy position, prepped and draped in the usual sterile fashion. At this point, I attempted to insert the button resectoscope into the urethral meatus but it would not go in because the meatus was too narrow. I therefore dilated the urethral meatus to #30-[place] using curved metal sounds. I was then able to insert the resectoscope with visual obturator and advance into the bladder. I made note of the location of both ureteral orifices and they were not close to the bladder neck. Of note, the patient had bilobar benign prostatic hyperplasia with a very high riding bladder neck. At this point, I began vaporizing hyperplastic tissue first bringing down the bladder neck and circumferentially around the bladder neck. I then started working above the level of disease. I kept doing this until there was a clear channel established. Throughout the procedure, I made sure not to vaporize too close to the urethral orifices or distal to the verumontanum. Once there was a clear channel established, hemostasis was obtained using the coagulation current. Once there was adequate hemostasis, this marked the conclusion of the procedure. The button resectoscope was then removed and a #20-[place] Ibarra catheter was inserted into the bladder and the balloon filled with 15 mL of sterile water. Fluid drained clear out of the catheter at the end of the procedure. The catheter was then connected to gravity drainage and this marked the conclusion of the procedure. The patient was then taken out of dorsal lithotomy position, awakened from anesthesia and transported to the recovery room in stable condition. ESTIMATED BLOOD LOSS: 10 mL. COMPLICATIONS: None. SPECIMENS: None. PLAN: The patient will stay overnight and be discharged home in the morning. He will be discharged home with a catheter in place and he will followup in the clinic in about 1 week for catheter removal and voiding trial.
== END 2016-11-29 12:40 | disposition home or self-care (01) ==
LOC: M SDC 05:50 → M MS5PR 11:55 → M SDC 11-29 12:40
PROVIDERS: ATTEND Urology
DX: N40.1 Benign prostatic hyperplasia with lower urinary tract symptoms (principal); N13.1 Hydronephrosis with ureteral stricture, not elsewhere classified; R07.9 Chest pain, unspecified; K76.9 Liver disease, unspecified; K59.00 Constipation, unspecified; K64.9 Unspecified hemorrhoids; K57.30 Diverticulosis of large intestine without perforation or abscess without bleeding; R06.02 Shortness of breath; M54.6 Pain in thoracic spine; R25.2 Cramp and spasm; F32.9 Major depressive disorder, single episode, unspecified; N28.9 Disorder of kidney and ureter, unspecified; K20.9 Esophagitis, unspecified; Z79.899 Other long term (current) drug therapy; Z79.82 Long term (current) use of aspirin
CPT/HCPCS: 52601; J0690; J1940; J2250; J2405; J2710; J3010

== ENCOUNTER → 2018-11-21 | Outpatient (REF) | payer MEDICARE ==
[~2018-11-21] MED LIST changes: -ASPI1TAB PO; +ASPI1TAB15 PO; +ASPI81TA26 PO; +CIPR500S PO; +COLA100C5 PO; -DOCQ100C; +DOCQ100C5; +GABA-1171 PO; -GABA-279 PO; -GABA-283 PO; +GABA-845 PO; +OMEP40CA2 PO; +POLY1POW38 PO; -POLY33502 PO; +TIZA2CAP PO; -TIZA2CAP3 PO; -UNIS25TA2 PO; +UNIS25TA3 PO
[2018-11-21 15:54] LABS: BASO % 0.5 % (0.0-1.0); EOS % 0.2 % (0.0-3.0); HEMATOCRIT 47.1 % (42.0-52.0); HEMOGLOBIN 16.8 g/dl (13.5-17.5); LYMPH # 1.5 10^3/uL (1.5-4.5); LYMPH % 24.1 % (24.0-44.0); MEAN CORPUSCULAR HEMOGLOBIN 32.5 pg (27.0-33.0); MEAN CORPUSCULAR HGB CONC 35.7 g/dl (32.0-36.5); MEAN CORPUSCULAR VOLUME 91.1 fl (80.0-96.0); MONO # 0.5 10^3/uL (0.0-0.8); MONO % 7.8 % (0.0-5.0); NEUTROPHILS % 66.9 % (36.0-66.0); PLATELET COUNT, AUTOMATED 186 10^3/uL (150-450); RED BLOOD COUNT 5.17 10^6/uL (4.30-6.10)
[2018-11-21 15:59] LABS: ALBUMIN 4.2 GM/DL (3.2-5.2); ALT/SGPT 21 U/L (12-78); BILIRUBIN,TOTAL 2.1 MG/DL (0.2-1.0); BLOOD UREA NITROGEN 16 MG/DL (7-18); CALCIUM LEVEL 9.6 MG/DL (8.8-10.2); CARBON DIOXIDE LEVEL 25 MEQ/L (21-32); CHLORIDE LEVEL 105 MEQ/L (98-107); CREATININE FOR GFR 1.17 MG/DL (0.70-1.30); GLOMERULAR FILTRATION RATE > 60.0 (>42); GLUCOSE, FASTING 76 MG/DL (70-100); POTASSIUM SERUM 4.2 MEQ/L (3.5-5.1); SODIUM LEVEL 138 MEQ/L (136-145)
== END ==
LOC: M SFHCPLAZ 14:15
PROVIDERS: ATTEND Physician Assistant Medical
DX: J39.2 Other diseases of pharynx (principal)

== ENCOUNTER → 2018-12-09 | Outpatient (CLI) | payer MEDICARE ==
[2018-12-09 12:47] LABS: BLOOD UREA NITROGEN 13 MG/DL (7-18); CREATININE FOR GFR 1.07 MG/DL (0.70-1.30); GLOMERULAR FILTRATION RATE > 60.0 (>42)
== END ==
LOC: M LAB 10:58
PROVIDERS: ATTEND Otolaryngology
DX: K20.9 Esophagitis, unspecified (principal)

== ENCOUNTER 2020-01-23 21:05 | Emergency (ER) | payer BC, MEDICARE ==
[~2020-01-23] VITALS: Ht 172.7 cm; Wt 102.4 kg
[~2020-01-23 21:05] MED LIST changes: +ASPI-546 PO; -ASPI1TAB15 PO; -OMEP40CA2 PO; +OMEP40CA97 PO
[2020-01-23 22:12] LABS: BASO % 0.7 % (0.0-1.0); EOS # 0.1 10^3/uL (0.0-0.5); EOS % 0.8 % (0.0-3.0); HEMATOCRIT 46.4 % (42.0-52.0); HEMOGLOBIN 16.1 g/dl (13.5-17.5); LYMPH # 1.7 10^3/uL (1.5-5.0); LYMPH % 28.5 % (24.0-44.0); MEAN CORPUSCULAR HEMOGLOBIN 31.3 pg (27.0-33.0); MEAN CORPUSCULAR HGB CONC 34.7 g/dl (32.0-36.5); MEAN CORPUSCULAR VOLUME 90.1 fl (80.0-96.0); MONO # 0.5 10^3/uL (0.0-0.8); MONO % 8.3 % (0.0-5.0); NEUTROPHILS # 3.6 10^3/uL (1.5-8.5); NEUTROPHILS % 61.4 % (36.0-66.0); PLATELET COUNT, AUTOMATED 203 10^3/uL (150-450); RED BLOOD COUNT 5.15 10^6/uL (4.30-6.10); WHITE BLOOD COUNT 5.9 10^3/uL (4.0-10.0)
--- NOTE | 2020-01-23 22:22 | REPVR ---
PROCEDURE INFORMATION: Exam: XR Chest, 1 View Exam date and time: 01/23/2020 9:54 PM Age: 69 years old Clinical indication: Other: Chest pain TECHNIQUE: Imaging protocol: XR of the chest Views: 1 view. COMPARISON: CR Chest, 2 view PA, Lat 11/13/2016 9:10 AM FINDINGS: Lungs: There is decreased inflation of the lungs. Minimal right base plate atelectasis. There are no interval infiltrates. Pleural space: Unremarkable. No pleural effusion. No pneumothorax. Heart/Mediastinum: The heart and mediastinum are unchanged in view of lordotic projection. Bones/joints: Unremarkable. Soft tissues: There are moderately generous overlying soft tissues. IMPRESSION: 1. Decreased inflation since 11/13/2016 with minimal right base linear plate atelectasis. 2. Otherwise stable chest. Electronically signed by: Solis Sparks On 01/23/2020 22:21:51 PM
[2020-01-23 22:45] LABS: ALBUMIN 3.6 GM/DL (3.2-5.2); ALT/SGPT 20 U/L (12-78); BILIRUBIN,DIRECT 0.4 MG/DL (0.0-0.2); BILIRUBIN,TOTAL 1.9 MG/DL (0.2-1.0); BLOOD UREA NITROGEN 13 MG/DL (7-18); CALCIUM LEVEL 8.9 MG/DL (8.8-10.2); CARBON DIOXIDE LEVEL 25 MEQ/L (21-32); CHLORIDE LEVEL 108 MEQ/L (98-107); CK-MB VALUE MASS 1.1 NG/ML (<3.6); CPK CREATINE PHOSPHOKINASE 77 U/L (39-308); CREATININE FOR GFR 1.22 MG/DL (0.70-1.30); GLOMERULAR FILTRATION RATE > 60.0 (>42); GLUCOSE, FASTING 107 MG/DL (70-100); LIPASE 75 U/L (73-393); MB/CK RELATIVE INDEX 1.43 (< OR =4); NT-PRO BNP 103 PG/ML (<125); POTASSIUM SERUM 3.8 MEQ/L (3.5-5.1); SODIUM LEVEL 140 MEQ/L (136-145); TOTAL PROTEIN 6.5 GM/DL (6.4-8.2); TROPONIN I < 0.02 NG/ML (< 0.10)
[2020-01-23 23:15] VITALS: BP 130/92
--- NOTE | 2020-01-24 07:14 | ECGEPIP ---
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
== END 2020-01-23 23:35 | disposition home or self-care (01) ==
LOC: M ED 21:05
DX: R07.89 Other chest pain (principal); M54.5 Low back pain; K29.70 Gastritis, unspecified, without bleeding

== ENCOUNTER 2020-11-11 20:29 | Observation (INO) | payer OTHER, MEDICARE ==
[~2020-11-11] VITALS: Ht 172.7 cm; Wt 104.2 kg
[~2020-11-11 20:29] MED LIST changes: +GABA-283 PO; -GABA-845 PO; +OMEP40CA4 PO; -OMEP40CA97 PO
[2020-11-11] MEDS ORDERED: NS 1,000 ML IV ONE (20:50)
[2020-11-11] MEDS ORDERED: ONDANSETRON 4MG/2ML VIAL IV ONE (20:50)
[2020-11-11 21:08] LABS: VENOUS BASE EXCESS -1.5 (-2.0-2.0); VENOUS HCO3 24.6 MEQ/L (23.0-27.0); VENOUS O2 SATURATION 48.4 % (60.0-80.0); VENOUS PARTIAL PRESSURE CO2 45.7 mmHg (38.0-50.0); VENOUS PARTIAL PRESSURE O2 24.6 mmHg (30.0-50.0); VENOUS PH 7.348 UNITS (7.330-7.430); VENOUS STANDARD HCO3 21.9 MEQ/L
[2020-11-11] MEDS ORDERED: ISOVUE-370 76% 100ML VIAL As Ordered ONE (21:10)
[2020-11-11 21:25] LABS: BASO % 0.3 % (0.0-1.0); EOS # 0.1 10^3/uL (0.0-0.5); EOS % 0.6 % (0.0-3.0); HEMATOCRIT 46.5 % (42.0-52.0); HEMOGLOBIN 16.4 g/dl (13.5-17.5); LYMPH # 1.5 10^3/uL (1.5-5.0); LYMPH % 14.9 % (24.0-44.0); MEAN CORPUSCULAR HEMOGLOBIN 32.1 pg (27.0-33.0); MEAN CORPUSCULAR HGB CONC 35.3 g/dl (32.0-36.5); MONO # 0.7 10^3/uL (0.0-0.8); MONO % 6.9 % (2.0-8.0); NEUTROPHILS # 7.5 10^3/uL (1.5-8.5); NEUTROPHILS % 75.8 % (36.0-66.0); PLATELET COUNT, AUTOMATED 170 10^3/uL (150-450); RED BLOOD COUNT 5.11 10^6/uL (4.30-6.10); WHITE BLOOD COUNT 9.9 10^3/uL (4.0-10.0)
[2020-11-11 21:37] LABS: INR 1.01; PROTHROMBIN TIME 13.8 SECONDS (12.7-14.5)
[2020-11-11 21:38] LABS: PARTIAL THROMBOPLASTIN TIME 22.4 SECONDS (25.9-37.0)
[2020-11-11 21:40] LABS: ALBUMIN 3.9 GM/DL (3.2-5.2); ALT/SGPT 31 U/L (12-78); AMYLASE 58 U/L (25-115); BILIRUBIN,DIRECT 0.3 MG/DL (0.0-0.2); BILIRUBIN,TOTAL 1.3 MG/DL (0.2-1.0); BLOOD UREA NITROGEN 15 MG/DL (7-18); CALCIUM LEVEL 9.2 MG/DL (8.8-10.2); CARBON DIOXIDE LEVEL 27 MEQ/L (21-32); CHLORIDE LEVEL 106 MEQ/L (98-107); CK-MB VALUE MASS 2.6 NG/ML (<3.6); CPK CREATINE PHOSPHOKINASE 252 U/L (39-308); CREATININE FOR GFR 1.41 MG/DL (0.70-1.30); ETHYL ALCOHOL (ETHANOL) < 0.003 % (0.000-0.010); GLOMERULAR FILTRATION RATE 52.6 (>42); GLUCOSE, FASTING 98 MG/DL (70-100); LIPASE 84 U/L (73-393); MB/CK RELATIVE INDEX 1.03 (< OR =4); POTASSIUM SERUM 4.3 MEQ/L (3.5-5.1); SODIUM LEVEL 140 MEQ/L (136-145); TOTAL PROTEIN 6.6 GM/DL (6.4-8.2); TROPONIN I < 0.02 NG/ML (< 0.10)
[2020-11-11] MEDS: MORPHINE 4 MG/ML 1ML VIAL/SYRINGE (J2270) IV PRN ×2 (21:42→22:28)
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
[2020-11-12 00:03] LABS: RSV AMPLIFICATION NEGATIVE (NEGATIVE)
[2020-11-12] MEDS ORDERED: ONDANSETRON 4MG/2ML VIAL IV PRN (00:20)
[2020-11-12] MEDS ORDERED: KETOROLAC 30 MG/ML 1ML VIAL IV PRN (00:20)
[2020-11-12] MEDS ORDERED: MORPHINE 2 MG/ML 1ML VIAL (J2270) IV PRN (00:20)
[2020-11-12] MEDS ORDERED: NORCO, ANEXSIA 5/325MG TABLET (HYDROcodone/ACETAMINOPHEN) PO PRN (00:20)
[2020-11-12] MEDS ORDERED: HOME MED LIST COMPLETE! XX SCH (00:45)
[2020-11-12 01:30] VITALS: BP 162/112
[2020-11-12] MEDS: SENOKOT S TAB PO SCH ×2 (01:55→08:54)
[2020-11-12] MEDS ORDERED: MORPHINE 2 MG/ML 1ML VIAL (J2270) IV ONE (03:15)
[2020-11-12 06:00] VITALS: BP 118/83
[2020-11-12] MEDS ORDERED: HYDR-3715 PO (07:26)
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
[2020-11-12] MEDS ORDERED: PANTOPRAZOLE 40MG VIAL (C9113 PER 1) IV SCH (09:00)
--- NOTE | 2020-11-12 09:35 | ECGEPIP ---
[facility] - ED Test Date: 2020-11-11 Pat Name: CRYSTAL KUMARI Department: Room: [place] [address] Gender: Male Hospital Secretary: NEIDA : 1950 Requested By: AMBER Choi Order Number: [id number] Reading MD: Verna Stanley Measurements Intervals [place] Rate: 78 P: 24 AL: 192 QRS: -2 QRSD: 80 T: 8 QT: 378 QTc: 430 Interpretive Statements Normal sinus rhythm PRWP low voltage precordial NSTTW abnormalities Electronically Signed on 11-12-2020 9:35:00 EDT by Verna Stanley
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
== END 2020-11-12 13:06 | disposition home or self-care (01) ==
LOC: M ED 20:29 → M ED INP 11-12 00:17 → ENRESERV 11-12 01:08 → M MSPAV 11-12 01:31
PROVIDERS: ADMIT Surgery; ATTEND Surgery
DX: R07.89 Other chest pain (principal); S42.001A Fracture of unspecified part of right clavicle, initial encounter for closed fracture; S22.43XA Multiple fractures of ribs, bilateral, initial encounter for closed fracture; W23.1XXA Caught, crushed, jammed, or pinched between stationary objects, initial encounter; Y92.89 Other specified places as the place of occurrence of the external cause; Y99.2 Volunteer activity; F32.9 Major depressive disorder, single episode, unspecified; K21.9 Gastro-esophageal reflux disease without esophagitis; N40.0 Benign prostatic hyperplasia without lower urinary tract symptoms; Y93.9 Activity, unspecified
CPT/HCPCS: 70450; 71045; 71046; 71260; 72125; 73000; 74177; 80047; 80048; 80076; 82077; 82150; 82550; 82553; 82803; 83605; 83690; 84484; 85025; 85610; 85730; 86850; 86900; 86901; 87631; 93005; 93041; 94760; 96374; 96375; 96376; 99285; C9113; J1885; J2270; J2405; Q9967

== ENCOUNTER 2020-11-13 18:48 | Emergency (ER) | payer OTHER, MEDICARE ==
[~2020-11-13] VITALS: Ht 172.7 cm; Wt 102.5 kg
[2020-11-13 18:48] VITALS: BP 156/78
[~2020-11-13 18:48] MED LIST changes: +HYDR-3715 PO
[2020-11-13] MEDS ORDERED: KETOROLAC 30 MG/ML 1ML VIAL IM ONE ×2 (22:05→23:05)
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
== END 2020-11-14 00:55 | disposition home or self-care (01) ==
LOC: M ED 18:48
DX: M54.9 Dorsalgia, unspecified (principal)
CPT/HCPCS: 71046; 96372; 99282; J1885

== ENCOUNTER 2023-08-31 03:08 | Emergency (ER) | payer MEDICARE, OTHER ==
[~2023-08-31] VITALS: Ht 172.7 cm; Wt 95.7 kg
[~2023-08-31 03:08] MED LIST changes: -GABA-283 PO; +GABA-284 PO
[2023-08-31 03:50] LABS: BASO % 0.3 % (0.0-1.0); EOS # 0.2 10^3/uL (0.0-0.5); EOS % 2.2 % (0.0-3.0); HEMATOCRIT 41.7 % (42.0-52.0); HEMOGLOBIN 15.1 g/dl (13.5-17.5); LYMPH % 26.3 % (24.0-44.0); MEAN CORPUSCULAR HGB CONC 36.2 g/dl (32.0-36.5); MONO # 0.8 10^3/uL (0.0-0.8); MONO % 10.9 % (2.0-8.0); NEUTROPHILS # 4.5 10^3/uL (1.5-8.5); NEUTROPHILS % 59.9 % (36.0-66.0); PLATELET COUNT, AUTOMATED 225 10^3/uL (150-450); RED BLOOD COUNT 4.58 10^6/uL (4.30-6.10); WHITE BLOOD COUNT 7.4 10^3/uL (4.0-10.0)
[2023-08-31 04:15] LABS: LIPASE 39 U/L (12-53)
[2023-08-31 04:17] LABS: ALBUMIN 3.5 G/DL (3.2-5.2); ALKALINE PHOSPHATASE 89 U/L (46-116); ALT/SGPT 25 U/L (7.0-40); AST/SGOT 21 U/L (<34); BILIRUBIN,DIRECT 0.6 MG/DL (<0.4); BILIRUBIN,TOTAL 1.4 MG/DL (0.3-1.2); BLOOD UREA NITROGEN 19 MG/DL (9-23); CALCIUM LEVEL 9.4 MG/DL (8.3-10.6); CARBON DIOXIDE LEVEL 26 MMOL/L (20-31); CHLORIDE LEVEL 107 MMOL/L (98-107); CREATININE FOR GFR 1.24 MG/DL (0.70-1.30); GLOMERULAR FILTRATION RATE > 60.0 (>42); GLUCOSE, FASTING 99 MG/DL (74-106); SODIUM LEVEL 142 MMOL/L (136-145); TOTAL PROTEIN 6.2 G/DL (5.7-8.2)
[2023-08-31] MEDS ORDERED: OMEP40CA5 (05:09)
[2023-08-31] MEDS ORDERED: MAALSUS19 PO (05:43)
[2023-08-31] MEDS ORDERED: PROT1TAB2 PO (05:43)
[2023-08-31] MEDS ORDERED: NORV5TAB PO (05:43)
[2023-08-31 05:44] VITALS: BP 171/91
[2023-08-31] MEDS: PANTOPRAZOLE 40MG TAB (PROTONIX) PO ONE (05:44)
[2023-08-31] MEDS: amLODIPine 5 MG TAB PO ONE (05:44)
[2023-08-31 05:51] VITALS: BP 156/86; TEMP 98.1; O2SAT 96
== END 2023-08-31 06:00 | disposition home or self-care (01) ==
LOC: M ED 03:08
DX: R13.10 Dysphagia, unspecified (principal); I10 Essential (primary) hypertension; K21.9 Gastro-esophageal reflux disease without esophagitis